=== PATIENT | male | born 1990 | race Caucasian/White ===

== ENCOUNTER 2019-08-13 12:04 | Emergency (ER) | payer OTHER, SELFPAY ==
[2019-08-13] VITALS (7 sets, daily range): BP systolic 104–174; BP diastolic 67–116; PULSE 80–107; RESP 16–20; TEMP 36.7; O2SAT 95–99; BMI 28.8
--- NOTE | 2019-08-13 12:46 | ED_ITS ---
Entered by Mesha Knight, acting as scribe for HPI - Dizziness General: Chief Complaint: Dizziness Stated Complaint: right side weakness Time Seen by Provider: 08/13/19 12:46 Source: patient Mode of arrival: ambulatory Limitations: no limitations History of Present Illness: HPI Narrative: 29 yo Male presents to ED with complaint of dizziness. Pt states that he has had a couple of episodes where there is something wrong in his neck behind his right ear. Pt states that the first time it happened it was really painful and then he got dizzy. Pt states then he had pain in his shoulder and right arm. Pt states that a couple of days later, he had a similar episode. Pt states that today he had another episode which included hot flashes, dizziness, and soreness in his right shoulder. Pt states that the first episode occurred on August 01. He had not had any other episode until today. MD elicited complaint: lightheadedness Timing: sudden onset and episodic Severity: mild Description: lightheadedness Review of Systems General: Reports: 10 or more systems reviewed and unremarkable except in HPI and below Musc: Reports: neck pain, extremity pain (right shoulder and right arm aching) and muscle cramps (muscle tightness in the right side of his neck) Neuro: Reports: dizziness PFSH ED PFSH: Statuses (acute, chronic, etc) shown below reflect problem list status as previously entered and may not be historically accurate Social History Smoking and tobacco status: never smoked Physical Exam Const: COMMON NORMALS: no apparent distress, average body habitus, oriented x3, no limitations, healthy appearing, alert and well nourished HENMT: COMMON NORMALS: normocephalic, head/scalp atraumatic, hearing grossly normal bilaterally, external ears normal, EAC's normal, TM's normal bilaterally, external nose normal, nasal mucous membranes and turbinates normal, moist oral mucous membranes, oropharynx normal, dentition normal and gingiva normal HEAD & SCALP: normocephalic and atraumatic NOSE: external nose normal and nasal mucous membranes and turbinates normal EXTERNAL EAR: Yes external ears normal EXTERNAL AUDITORY CANAL: EAC's normal TYMPANIC MEMBRANE: TM's normal bilaterally Eye: COMMON NORMALS: PERRL, EOMs intact bilaterally, conjunctivae normal, no scleral icterus, no papilledema, normal visual rosario by confrontation and fundi normal bilaterally CONJUNCTIVA: Yes conjunctivae normal PUPIL: Yes PERRL DIRECT OPHTHALMOSCOPY: Yes no papilledema and Yes fundi normal bilaterally Neck/C-Spine: COMMON NORMALS: full ROM, no lymphadenopathy, supple, no meningeal signs, no JVD, thyroid normal and no carotid bruits THYROID: thyroid normal Chest: COMMONS NORMALS: inspection of chest normal and palpation of chest normal Resp: COMMON NORMALS: normal respiratory effort, no retractions, no use of accessory muscles, clear to auscultation bilaterally and percussion normal AUSCULTATION: clear to auscultation bilaterally PERCUSSION: percussion normal Cardio: COMMON NORMALS: no JVD, regular rate, regular rhythm, S1 normal heart sound, S2 normal heart sound, no gallops, no clicks, no murmurs, no rub and peripheral pulses 2+ throughout RATE: regular rate RHYTHM: regular rhythm HEART SOUNDS: S1 normal and S2 normal PERIPHERAL PULSES: pulses 2+ throughout GI: COMMON NORMALS: normal to inspection, nondistended, normoactive bowel sounds, soft to palpation, non-tender, no hepatosplenomegaly, no masses and no bruits PALPATION: Yes soft and Yes no hepatosplenomegaly : COMMON NORMALS: Yes no CVA tenderness BLADDER/KIDNEY EXAM: Yes no CVA tenderness Back/Pelvis: COMMON NORMALS: no CVA tenderness Extremity: COMMON NORMALS: normal to inspection, full ROM, normal capillary refill, no joint enlargement, no clubbing, cyanosis or edema, no calf tenderness and no pedal edema Neuro: COMMON NORMALS: oriented x3 SENSORIUM/ORIENTATION: Yes alert MENINGEAL SIGNS: Yes no meningeal signs Skin: COMMON NORMALS: no rashes or lesions noted, no wounds, skin turgor normal, no jaundice, no petechiae and no mottling GENERAL SKIN EXAM: no rashes or lesions noted and turgor normal Course Reevaluation(s): Reevaluation #1: Discussed his lab and imaging findings with him. Negative for acute findings. We will discharge him home with no new orders. He is to follow-up with his primary care provider within 1 week. Time: 16:11 Vital Signs: Vital signs: Vital Signs Temperature 98.1 F 08/13/19 12:27 Pulse Rate 104 H 08/13/19 14:36 Respiratory Rate 20 H 08/13/19 14:36 Blood Pressure 174/107 08/13/19 14:36 Pulse Oximetry 99 08/13/19 14:36 MDM - Dizziness MDM Narrative: Medical decision making narrative: 29-year-old gentleman who presents with dizziness and neck pain. Evaluation in the emergency department including history, examination and lab and imaging findings are unremarkable. Differential diagnosis discussed with the patient which include orthostatic hypotension, BPPV, less likely CVA and less likely dehydration. Differential Diagnosis: Dizziness Differential Diagnosis: Likely benign paroxysmal positional vertigo, orthostatic hypotension, cerebrovascular accident and acute vestibular neuronitis Lab Data: Labs: Lab Results 08/13/19 08/13/19 08/13/19 Range/Units 13:08 13:08 13:08 WBC 5.8 (4.0-10.0) 10^3/ uL RBC 4.85 (4.1-5.3) 10^6/u L Hgb 13.6 (11.7-16.6) g/dL Hct 41.8 L (42.0-52.0) % MCV 86.2 (80-94) fL MCH 28.0 (28.0-34.0) pg MCHC 32.5 (30.0-36.0) g/dL RDW 13.4 (12.1-15.1) % Plt Count 236 (130-400) 10^3/c mm MPV 11.8 H (7.4-10.4) fL Neut % (Auto) 67.2 % Lymph % (Auto) 23.1 % [place] % (Auto) 7.5 % Eos % (Auto) 1.4 % Baso % (Auto) 0.5 % Neut # (Auto) 3.9 (1.8-7.7) 10^3/u L Lymph # (Auto) 1.3 (0.8-4.8) 10^3/u L [place] # (Auto) 0.4 (0.2-0.9) 10^3/u L Eos # (Auto) 0.1 (0.0-0.8) 10^3/u L Baso # (Auto) 0.0 (0.0-0.1) 10^3/u L Nucleated RBC % (a uto) 0 % Nucleated RBCs # 0.0 /100WBC Sodium 138 (136-145) mmol/L Potassium 4.2 (3.5-5.1) mmol/L Chloride 101 (98-107) mmol/L Carbon Dioxide 28 (22-29) mmol/L Anion Gap 13.2 (5-19) BUN 18 (6-20) mg/dL Creatinine 1.1 (0.7-1.2) mg/dL GFR Calculation 78.6 L (90-130) mL/min Glucose 109 (74-109) mg/dL Calcium 10.0 (8.6-10.0) mg/Dl Total Bilirubin 0.4 (0.15-1.2) mg/dL AST 26 (0-40) U/L ALT 31 (0-41) U/L Alkaline Phosphata se 88 (40-130) IU/L Troponin T Baselin e 6 (0-15) ng/mL Troponin T 120 Min rohith (0-15) ng/mL Delta Troponin T (0-10) ABS# Total Protein 8.2 (6.6-8.7) g/dL Albumin 4.7 (3.5-5.2) g/dL Globulin 3.5 (1.3-4.6) g/dL TSH 4.19 (0.27-4.20) uIU/ mL 08/13/19 Range/Units 15:12 WBC (4.0-10.0) 10^3/ uL RBC (4.1-5.3) 10^6/u L Hgb (11.7-16.6) g/dL Hct (42.0-52.0) % MCV (80-94) fL MCH (28.0-34.0) pg MCHC (30.0-36.0) g/dL RDW (12.1-15.1) % Plt Count (130-400) 10^3/c mm MPV (7.4-10.4) fL Neut % (Auto) % Lymph % (Auto) % [place] % (Auto) % Eos % (Auto) % Baso % (Auto) % Neut # (Auto) (1.8-7.7) 10^3/u L Lymph # (Auto) (0.8-4.8) 10^3/u L [place] # (Auto) (0.2-0.9) 10^3/u L Eos # (Auto) (0.0-0.8) 10^3/u L Baso # (Auto) (0.0-0.1) 10^3/u L Nucleated RBC % (a uto) % Nucleated RBCs # /100WBC Sodium (136-145) mmol/L Potassium (3.5-5.1) mmol/L Chloride (98-107) mmol/L Carbon Dioxide (22-29) mmol/L Anion Gap (5-19) BUN (6-20) mg/dL Creatinine (0.7-1.2) mg/dL GFR Calculation (90-130) mL/min Glucose (74-109) mg/dL Calcium (8.6-10.0) mg/Dl Total Bilirubin (0.15-1.2) mg/dL AST (0-40) U/L ALT (0-41) U/L Alkaline Phosphata se (40-130) IU/L Troponin T Baselin e (0-15) ng/mL Troponin T 120 Min rohith 6.00 (0-15) ng/mL Delta Troponin T 0 (0-10) ABS# Total Protein (6.6-8.7) g/dL Albumin (3.5-5.2) g/dL Globulin (1.3-4.6) g/dL TSH (0.27-4.20) uIU/ mL Imaging Data^: CXR: Radiologist's impression: [address] [address] XRay Report Signed Patient: Kwan Arredondo [facility]#: [id number] : 1990Acct:[id number] Age/Sex: 29 / MADM Date: 08/13/19 Loc: ER Attending Dr: Ordering Physician: Maria De Jesus Villegas MD, [facility] [place] Date of Service: 08/13/19 Procedure(s): XR chest 2V* 36333 Accession Number(s): [id number] Report Number: [id number] WS: [id number] CHEST 2 VIEWS HISTORY: dizziness COMPARISON: None available. Lungs: Clear with no abnormality. No pleural effusion or pneumothorax. Cardiac size: Normal. Mediastinum/Aorta: Normal mediastinum. Bones: Normal. XR/XR chest 2V* 48525 IMPRESSION: Normal chest. Dictated By:Erendira Morales DO Signed By:Erendira Morales DOSigned Date/Time:08/13/191402 DD/ 140 Soft Tissue Neck: Radiologist's impression: [place] [address] XRay Report Signed Patient: Kwan Arredondo SMR#: [id number] : 1990Acct:[id number] Age/Sex: 29 / MADM Date: 08/13/19 Loc: ER Attending Dr: Ordering Physician: Maria De Jesus Villegas MD, [facility] [place] Date of Service: 08/13/19 Procedure(s): XR soft tissue neck 20951 Accession Number(s): [id number] Report Number: [id number] WS: [id number] SOFT TISSUE NECK 2 VIEW(S) TECHNIQUE: AP and lateral views of the neck in soft tissue technique are performed. HISTORY: neck pain COMPARISON: None available. No significant steepling or narrowing of the airway. Hypopharynx is not distended. No retropharyngeal soft tissue mass or air. Epiglottis is normal. XR/XR soft tissue neck 58778 IMPRESSION: Normal soft tissue neck. Dictated By:Erendira Morales DO Signed By:Erendira Morales DOSigned Date/Time:08/13/191404 DD/ 140 C-Spine Xray: Radiologist's impression: [address] [address] XRay Report Signed Patient: Kwan Arredondo SMR#: [id number] : 1990Acct:[id number] Age/Sex: 29 / MADM Date: 08/13/19 Loc: ER Attending Dr: Ordering Physician: Maria De Jesus Villegas MD, [facility] [place] Date of Service: 08/13/19 Procedure(s): XR cervical spine 2V* 32767 Accession Number(s): [id number] Report Number: [id number] WS: [id number] CERVICAL SPINE 3 VIEWS HISTORY: neck pain COMPARISON: None available. Normal cervical alignment. No fracture. Disc spaces are maintained. Disc spaces and vertebral body heights are well-maintained. Lateral masses of C1 and C2 are aligned. The odontoid is not visualized in its entirety. XR/XR cervical spine 2V* 65863 IMPRESSION: Normal cervical spine. Dictated By:Erendira Morales DO Signed By:Erendira Morales DOSigned Date/Time:08/13/19 1517 DD/ 1516 EKG Data^: EKG 1: Other EKG comments: [address] [address] Electrocardiograph Report Signed Patient: Kwan Arredondo SMR#: [id number] : 1990Acct:[id number] Age/Sex: 29 / MADM Date: 08/13/19 Loc: ER Attending Dr: Ordering Physician: Maria De Jesus Villegas MD, [facility] [place] Date of Service: 08/13/19 Procedure(s): ECG 12 lead EKG Accession Number(s): [id number] Report Number: [id number] Measurements Intervals [place] Rate: 74 P: 16 [place]: 157 QRS: 49 QRSD: 97 T: 21 QT: 356 QTc: 395 SINUS RHYTHM No previous ECG available for comparison Electronically Signed On 08-13-2019 15:08:47 LEASE PICKER by Cristian Reno M.D. [email or web address] Dictated By:Cristian Reno MD Signed By:Cristian Reno MDSigned Date/Time:08/13/19 1509 DD/ 1350 EKG 2: EKG interpretation date: 08/13/19 EKG interpretation time: 15:40 Prior EKG tracings: available for review Other EKG comments: No changes on EKG compared to earlier today. Discharge Plan Discharge Patient Disposition: Home, Self-Care Clinical Impression: Dizziness after extension of neck Condition: Stable Prescriptions: No Action Claritin 10 mg Tablet 10 mg PO DAILY PRN (Reason: Allergic Symptoms) RF: 0 Discharge Diet: Usual diet Discharge Activity: Resume usual activity Patient Instructions: Dizziness (ED) Activity Restrictions/Additional Instructions: Return for any new or worsening symptoms. Follow-up with your primary care provider within 1 week. Coding Level of Care Code ED Communication Analyst for Chg Fwd Exam Problem Focused The documentation recorded by the Antonia bernard Carmen, accurately reflects the service I personally performed and the decisions made by , Maria De Jesus Villegas MD, [facility] [place] Aug 13, 2019 12:04
--- NOTE | 2019-08-13 13:35 | XR_ITS ---
WS: [id number] SOFT TISSUE NECK 2 VIEW(S) TECHNIQUE: AP and lateral views of the neck in soft tissue technique are performed. HISTORY: neck pain COMPARISON: None available. No significant steepling or narrowing of the airway. Hypopharynx is not distended. No retropharyngeal soft tissue mass or air. Epiglottis is normal. XR/XR soft tissue neck 62421 IMPRESSION: Normal soft tissue neck.
--- NOTE | 2019-08-13 13:36 | XR_ITS ---
WS: [id number] CHEST 2 VIEWS HISTORY: dizziness COMPARISON: None available. Lungs: Clear with no abnormality. No pleural effusion or pneumothorax. Cardiac size: Normal. Mediastinum/Aorta: Normal mediastinum. Bones: Normal. XR/XR chest 2V* 43138 IMPRESSION: Normal chest.
[2019-08-13 13:53] LABS: Basophils % 0.5 %; Eosinophils # 0.1 10^3/uL (0.0-0.8); Eosinophils % 1.4 %; Hematocrit 41.8 % (42.0-52.0); Hemoglobin 13.6 g/dL (11.7-16.6); Lymphocytes # 1.3 10^3/uL (0.8-4.8); Lymphocytes % 23.1 %; Mean Corpuscular HGB Conc 32.5 g/dL (30.0-36.0); Mean Corpuscular Volume 86.2 fL (80-94); Mean Platelet Volume 11.8 fL (7.4-10.4); Monocytes # 0.4 10^3/uL (0.2-0.9); Monocytes % 7.5 %; Neutrophils # 3.9 10^3/uL (1.8-7.7); Neutrophils % 67.2 %; Nucleated Red Blood Cells % 0 %; Platelet Count 236 10^3/cmm (130-400); Red Blood Count 4.85 10^6/uL (4.1-5.3); Red Cell Distribution Width 13.4 % (12.1-15.1); White Blood Count 5.8 10^3/uL (4.0-10.0)
[2019-08-13 14:15] LABS: Troponin(5th) Baseline 6 ng/mL (0-15)
[2019-08-13 14:17] LABS: Alanine Aminotransferase 31 U/L (0-41); Albumin Level 4.7 g/dL (3.5-5.2); Alkaline Phosphatase 88 IU/L (40-130); Anion Gap 13.2 (5-19); Aspartate Amino Transferase 26 U/L (0-40); Blood Urea Nitrogen 18 mg/dL (6-20); Carbon Dioxide 28 mmol/L (22-29); Chloride 101 mmol/L (98-107); Globulin 3.5 g/dL (1.3-4.6); Glomerular Filtration Rate 78.6 mL/min (90-130); Glucose 109 mg/dL (74-109); Potassium 4.2 mmol/L (3.5-5.1); Sodium 138 mmol/L (136-145); Thyroid Stimulating Hormone 4.19 uIU/mL (0.27-4.20); Total Bilirubin 0.4 mg/dL (0.15-1.2); Total Protein 8.2 g/dL (6.6-8.7)
--- NOTE | 2019-08-13 14:25 | XR_ITS ---
WS: [id number] CERVICAL SPINE 3 VIEWS HISTORY: neck pain COMPARISON: None available. Normal cervical alignment. No fracture. Disc spaces are maintained. Disc spaces and vertebral body heights are well-maintained. Lateral masses of C1 and C2 are aligned. The odontoid is not visualized in its entirety. XR/XR cervical spine 2V* 89521 IMPRESSION: Normal cervical spine.
--- NOTE | 2019-08-13 15:36 | ECG_ITS ---
Measurements Intervals [place] Rate: 82 P: 31 [place]: 152 QRS: 63 QRSD: 106 T: 24 QT: 353 QTc: 413 SINUS RHYTHM WITH SINUS ARRHYTHMIA Compared to ECG 08/13/2019 13:50:52 No significant changes Electronically Signed On 08-14-2019 15:03:10 UI UX DEVELOPER by Eva Elliott M.D. [email or web address]
[2019-08-13 15:51] LABS: Troponin 5 2HR Delta 0 ABS# (0-10)
--- NOTE | 2019-08-13 19:36 | ECG_ITS ---
Measurements Intervals [place] Rate: 74 P: 16 [place]: 157 QRS: 49 QRSD: 97 T: 21 QT: 356 QTc: 395 SINUS RHYTHM No previous ECG available for comparison Electronically Signed On 08-13-2019 15:08:47 EMERGENCY ROOM CLINICIAN by Cristian Reno M.D. [email or web address]
== END 2019-08-13 16:30 | disposition home or self-care (01) ==
PROVIDERS: Emergency Provider Family Medicine
DX: R42 Dizziness and giddiness (principal)
CPT/HCPCS: 36415; 70360; 71046; 72040; 80053; 84443; 84484; 85025; 93005; 99282